=== PATIENT | male | born 2000 | race African-American/Black ===

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

== ENCOUNTER 2023-03-27 05:33 | Emergency (ER) | payer MEDICAID, OTHER ==
[~2023-03-27] VITALS: Ht 182.9 cm; Wt 85.3 kg
[2023-03-27 06:32] LABS: BASO % 0.2 % (0.0-1.0); EOS # 0.1 10^3/uL (0.0-0.5); EOS % 1.3 % (0.0-3.0); HEMATOCRIT 43.2 % (42.0-52.0); HEMOGLOBIN 14.8 g/dl (13.5-17.5); LYMPH # 1.5 10^3/uL (1.5-5.0); MEAN CORPUSCULAR HEMOGLOBIN 31.3 pg (27.0-33.0); MEAN CORPUSCULAR HGB CONC 34.3 g/dl (32.0-36.5); MEAN CORPUSCULAR VOLUME 91.3 fl (80.0-96.0); MONO # 0.9 10^3/uL (0.0-0.8); MONO % 10.4 % (2.0-8.0); NEUTROPHILS # 6.1 10^3/uL (1.5-8.5); NEUTROPHILS % 70.7 % (36.0-66.0); PLATELET COUNT, AUTOMATED 239 10^3/uL (150-450); RED BLOOD COUNT 4.73 10^6/uL (4.30-6.10); WHITE BLOOD COUNT 8.6 10^3/uL (4.0-10.0)
[2023-03-27 06:58] LABS: ALBUMIN 4.1 G/DL (3.2-5.2); ALKALINE PHOSPHATASE 77 U/L (46-116); ALT/SGPT 25 U/L (7.0-40); AST/SGOT 21 U/L (<34); BILIRUBIN,TOTAL 0.9 MG/DL (0.3-1.2); BLOOD UREA NITROGEN 19 MG/DL (9-23); CARBON DIOXIDE LEVEL 26 MMOL/L (20-31); CHLORIDE LEVEL 104 MMOL/L (98-107); CREATININE FOR GFR 1.05 MG/DL (0.70-1.30); GLUCOSE, FASTING 124 MG/DL (60-100); POTASSIUM SERUM 3.7 MMOL/L (3.5-5.1); SODIUM LEVEL 138 MMOL/L (136-145); TOTAL PROTEIN 7.2 G/DL (5.7-8.2)
[2023-03-27] MEDS ORDERED: NS 1,000 ML IV ONE (08:05)
[2023-03-27] MEDS ORDERED: ONDANSETRON 4MG 2ML VIAL IV ONE (08:05)
[2023-03-27] MEDS ORDERED: ISOVUE-370 76% 100ML VIAL As Ordered ONE (08:09)
[2023-03-27] MEDS ORDERED: ONDA4TAB6 PO (10:23)
[2023-03-27] MEDS ORDERED: AZITHROMYCIN 250MG TABLET PO ONE (10:25)
[2023-03-27 10:43] VITALS: BP 158/79; TEMP 98.4; O2SAT 98
== END 2023-03-27 10:51 | disposition home or self-care (01) ==
LOC: M ED 05:33
DX: A04.5 Campylobacter enteritis (principal); F17.200 Nicotine dependence, unspecified, uncomplicated; F12.10 Cannabis abuse, uncomplicated; F10.10 Alcohol abuse, uncomplicated; Z79.83 Long term (current) use of bisphosphonates
CPT/HCPCS: 74177; 80053; 85025; 87507; 96361; 96374; 99284; J2405; Q9967

== ENCOUNTER → 2023-07-13 | Outpatient (REF) | payer OTHER ==
[~2023-07-13] MED LIST: ONDA4TAB6 PO
[2023-07-13 13:37] LABS: RSV AMPLIFICATION NEGATIVE (NEGATIVE)
== END ==
LOC: M LAB REF 12:07
PROVIDERS: ATTEND Physician Assistant
DX: R05.9 Cough, unspecified (principal)

== ENCOUNTER 2024-04-20 03:45 | Emergency (ER) | payer OTHER, SELFPAY ==
[~2024-04-20] VITALS: Ht 180.3 cm; Wt 86.2 kg
[~2024-04-20 03:45] MED LIST changes: +ONDA-282 PO; -ONDA4TAB6 PO
[2024-04-20] MEDS ORDERED: CETI-24 PO (08:07)
[2024-04-20] MEDS ORDERED: PRED20TA PO ×2 (08:07→08:08)
[2024-04-20 08:14] VITALS: BP 133/71; TEMP 98; O2SAT 99
== END 2024-04-20 08:29 | disposition home or self-care (01) ==
LOC: M ED 03:45
DX: R21 Rash and other nonspecific skin eruption (principal); T78.40XA Allergy, unspecified, initial encounter; F17.220 Nicotine dependence, chewing tobacco, uncomplicated; Z79.52 Long term (current) use of systemic steroids; Z79.83 Long term (current) use of bisphosphonates